=== PATIENT | male | born 1960 | race Two or more races ===

== ENCOUNTER 2024-04-04 09:50 | Inpatient (IN) | payer MEDICAID, OTHER ==
[~2024-04-04] VITALS: Ht 165.1 cm; Wt 65.3 kg
[2024-04-04] VITALS (9 sets, daily range): BP systolic 130–146; BP diastolic 67–72; PULSE 80–97; RESP 11–18; TEMP 98–98.7; O2SAT 100
[2024-04-04 10:28] LABS: Eosinophils # (auto) 0.1 10 ^3/uL (0-0.8); Eosinophils % (auto) 1.7 % (0.0-7.0); Lymphocytes # (auto) 1.2 10 ^3/uL (0.4-5.4); Mean Corpuscular Hemoglobin 20.6 pg (28.0-32.0); Platelet Count (auto) 209 10^3/uL (140-450)
[2024-04-04 10:31] LABS: Basophils # (auto) 0.1 10 ^3/uL (0-0.2); Basophils % (auto) 1.1 % (0.0-2.0); Hematocrit 18.4 % (41.0-53.0); Lymphocytes % (auto) 22.5 % (10.0-50.0); Mean Corpuscular Hgb Conc. 30.7 g/dL (32.0-36.0); Mean Corpuscular Volume 67.1 fL (80.0-100.0); Monocytes # (auto) 0.4 10 ^3/uL (0-1.3); Monocytes % (auto) 8.6 % (0.0-12.0); Neutrophils # (auto) 3.4 10 ^3/uL (1.6-8.6); Neutrophils % (auto) 66.1 % (37.0-80.0); Nucleated Red Blood Cells % 0.7 %; Red Blood Cells 2.75 10^6/uL (4.5-5.90); White Blood Cell 5.2 10^3/uL (4.4-10.8)
[2024-04-04 10:36] LABS: Chloride 96 mmol/L (98-107); Potassium 4.2 mmol/L (3.5-5.1); Sodium 129 mmol/L (136-145)
[2024-04-04 10:37] LABS: Anion Gap 9 (5-15); Calcium 9.5 mg/dL (8.7-10.4); Carbon Dioxide 24 mmol/L (20-31)
[2024-04-04 10:40] LABS: Red Cell Distribution Width 20.8 % (11.8-14.3)
[2024-04-04 10:42] LABS: BUN/Creatinine Ratio 5.4 (10.0-20.0); Blood Urea Nitrogen 5 mg/dL (9-23)
[2024-04-04 10:45] LABS: Hemoglobin 5.7 g/dL (13.5-17.5)
[2024-04-04 10:46] LABS: Glucose 491 mg/dL (74-106)
[2024-04-04] MEDS: LABETALOL HCL 20 MG/4 ML VL IV ONE (10:52)
[2024-04-04] MEDS: InsuLIN REG 1unit/0.01ml Soln (100units/ml) IV ONE (11:25)
[2024-04-04 11:30] LABS: Anisocytosis Slight; Hypochromia Moderate; Platelet Estimate Adequate
[2024-04-04 11:31] LABS: Ovalocytes FEW
[2024-04-04] MEDS ORDERED: MORPHINE SULFATE INJ 2 MG/ml SYRG IV PRN ×2 (18:30)
[2024-04-04] MEDS: MULTIPLE VITAMIN TAB PO ONE (18:30)
[2024-04-04] MEDS ORDERED: DEXTROSE (50%) 50ML SYRG IV PRN (18:30)
[2024-04-04] MEDS ORDERED: LORazepam 2MG/ML-1ML VIAL IV PRN (18:30)
[2024-04-04] MEDS ORDERED: ACETAMINOPHEN 325 MG TAB PO PRN (18:30)
[2024-04-04] MEDS ORDERED: ONDANSETRON HCL 4 MG/2 ML VIAL IV PRN (18:30)
[2024-04-04] MEDS ORDERED: NITROGLYCERIN 0.4 MG SL TAB SL PRN (18:30)
[2024-04-04] MEDS ORDERED: hydrALAZINE HCL 20 MG/ML VL IV PRN (19:00)
[2024-04-04] MEDS: chlordiazePOXIDE HCL 25 MG CAP PO SCH (20:24)
[2024-04-04] MEDS: FOLIC ACID 1 MG TAB PO ONE (20:24)
[2024-04-04] MEDS: LISINOPRIL 5 MG TAB PO ONE (20:25)
[2024-04-04] MEDS: HYDROcodone-ACET 5/325MG TAB PO PRN (20:25)
[2024-04-04] MEDS: PANTOPRAZOLE 40 MG/10 ML VIAL INJ IV ONE (20:40)
[2024-04-04] MEDS: MAGNESIUM SULFATE 1GM/100ML 100 ML IV SCH (20:40)
[2024-04-04] MEDS: PANTOPRAZOLE 40mg/50ML NS AE 50 ML IV SCH (20:41)
[2024-04-04] MEDS: THIAMINE HCL 100 MG TAB PO ONE (20:41)
[2024-04-04] MEDS: InsuLIN REG 1unit/0.01ml Soln (100units/ml) SC SCH (21:43)
[2024-04-04] MEDS: INSULIN LANTUS (GLARGINE) 1 /0.01ml (100units/ml) SC SCH (21:44)
[2024-04-04] MEDS: OCTREOTIDE ACETATE 100 MCG/ML VL ONE ×2 (21:45→22:49)
[2024-04-04] MEDS: OCTREOTIDE ACETATE 100 MCG in SODIUM CHL 0.9% 50 ML IV ONE (22:00)
[2024-04-04] MEDS: SODIUM CHLOR 0.9% PF (SALINE LOCK) 10ML VIAL/SYR IV SCH (22:29)
[2024-04-04] MEDS: ACCU-CHEK COMFORT CURVE STRIP VI SCH (22:29)
[2024-04-04] MEDS: OCTREOTIDE ACETATE 500 MCG in SODIUM CHL 0.9% 99 ML IV SCH (23:25)
[2024-04-05 05:16] LABS: Eosinophils # (auto) 0.1 10 ^3/uL (0-0.8); Lymphocytes # (auto) 1.2 10 ^3/uL (0.4-5.4); Mean Corpuscular Hemoglobin 24.4 pg (28.0-32.0); Monocytes # (auto) 0.6 10 ^3/uL (0-1.3); Neutrophils # (auto) 2.8 10 ^3/uL (1.6-8.6); White Blood Cell 4.8 10^3/uL (4.4-10.8)
[2024-04-05 05:19] LABS: Basophils # (auto) 0 10 ^3/uL (0-0.2); Basophils % (auto) 0.8 % (0.0-2.0); Eosinophils % (auto) 2.6 % (0.0-7.0); Hemoglobin 9.2 g/dL (13.5-17.5); Lymphocytes % (auto) 24.6 % (10.0-50.0); Mean Corpuscular Hgb Conc. 33.1 g/dL (32.0-36.0); Mean Corpuscular Volume 73.9 fL (80.0-100.0); Nucleated Red Blood Cells % 0.8 %; Platelet Count (auto) 173 10^3/uL (140-450); Red Blood Cells 3.78 10^6/uL (4.5-5.90)
[2024-04-05 05:32] LABS: Alanine Aminotransferase 25 U/L (7-40); Albumin 3.9 g/dL (3.2-4.8); Alkaline Phosphatase 116 U/L (46-116); Anion Gap 5 (5-15); Aspartate Aminotransferase 14 U/L (13-40); BUN/Creatinine Ratio 8.3 (10.0-20.0); Bilirubin, Total 1.8 mg/dL (0.2-1.0); Blood Urea Nitrogen 6 mg/dL (9-23); Calcium 8.9 mg/dL (8.7-10.4); Carbon Dioxide 26 mmol/L (20-31); Chloride 103 mmol/L (98-107); Magnesium 2.4 mg/dL (1.6-2.6); Potassium 4.1 mmol/L (3.5-5.1); Total Protein 6.6 g/dL (5.7-8.2)
[2024-04-05] MEDS: OCTREOTIDE ACETATE 100 MCG/ML VL ONE (05:32)
[2024-04-05 05:35] LABS: Glucose 204 mg/dL (74-106); Sodium 134 mmol/L (136-145)
[2024-04-05] MEDS: OCTREOTIDE ACETATE 500 MCG/ML VL ONE (05:41)
[2024-04-05 05:45] LABS: Triglycerides 83 mg/dL (< 150)
[2024-04-05 05:46] LABS: LDL Cholesterol 61 mg/dL (< 100)
[2024-04-05 05:47] LABS: Cholesterol 121 mg/dL (< 200); HDL Cholesterol 50 mg/dL (40-59)
[2024-04-05] MEDS: InsuLIN REG 1unit/0.01ml Soln (100units/ml) SC SCH (06:18)
[2024-04-05 07:25] LABS: Anisocytosis Moderate; Hypochromia Slight
[2024-04-05 07:26] LABS: Ovalocytes FEW; Platelet Estimate Adequate
[2024-04-05] MEDS: MULTIPLE VITAMIN TAB PO SCH (10:07)
[2024-04-05] MEDS: FOLIC ACID 1 MG TAB PO SCH (10:07)
[2024-04-05] MEDS: THIAMINE HCL 100 MG TAB PO SCH (10:08)
[2024-04-05] MEDS: chlordiazePOXIDE HCL 25 MG CAP PO SCH (10:08)
[2024-04-05] MEDS: LISINOPRIL 5 MG TAB PO SCH (10:09)
[2024-04-05 19:20] VITALS: PULSE 75; RESP 15; O2SAT 99
[2024-04-06 00:07] LABS: Urine Bacteria None Seen /hpf (None Seen)
[2024-04-06 00:27] LABS: Urine Blood Negative /uL (Negative); Urine Clarity Clear (Clear); Urine Color Yellow (Yellow); Urine Protein, UAD Negative (Negative); Urine Specific Gravity 1.012 (1.001-1.035); Urine Urobilinogen Normal (Negative); Urine WBC 2 /hpf (0 - 3); Urine pH 5.5 (5.0-9.0)
[2024-04-06 00:31] LABS: Amphetamine Screen, Urine Neg (NEGATIVE); Barbiturate Scree,Urine Neg (NEGATIVE); Benzodiazephine Screen, Urine Pos (NEGATIVE); Cannabinoid Screen, Urine Neg (NEGATIVE); Cocaine Screen, Urine Neg (NEGATIVE); Opiate Scree,Urine Neg (NEGATIVE); Phencyclidine Screen, Urine Neg (NEGATIVE)
[2024-04-06 06:57] LABS: Chloride 107 mmol/L (98-107); Potassium 4.4 mmol/L (3.5-5.1); Sodium 136 mmol/L (136-145)
[2024-04-06 06:58] LABS: Anion Gap 7 (5-15); Calcium 8.9 mg/dL (8.7-10.4); Carbon Dioxide 22 mmol/L (20-31)
[2024-04-06 07:03] LABS: BUN/Creatinine Ratio 6.7 (10.0-20.0); Blood Urea Nitrogen 5 mg/dL (9-23); Glucose 268 mg/dL (74-106)
[2024-04-06 07:19] LABS: Basophils # (auto) 0 10 ^3/uL (0-0.2); Eosinophils # (auto) 0.1 10 ^3/uL (0-0.8); Lymphocytes # (auto) 1.1 10 ^3/uL (0.4-5.4); Monocytes # (auto) 0.6 10 ^3/uL (0-1.3); Neutrophils # (auto) 3.5 10 ^3/uL (1.6-8.6); White Blood Cell 5.3 10^3/uL (4.4-10.8)
[2024-04-06 07:25] LABS: Basophils % (auto) 0.6 % (0.0-2.0); Hematocrit 29.4 % (41.0-53.0); Hemoglobin 9.5 g/dL (13.5-17.5); Lymphocytes % (auto) 21.2 % (10.0-50.0); Mean Corpuscular Hemoglobin 25.1 pg (28.0-32.0); Mean Corpuscular Hgb Conc. 32.2 g/dL (32.0-36.0); Mean Corpuscular Volume 78.1 fL (80.0-100.0); Monocytes % (auto) 10.7 % (0.0-12.0); Neutrophils % (auto) 65.5 % (37.0-80.0); Nucleated Red Blood Cells % 0.6 %; Platelet Count (auto) 163 10^3/uL (140-450); Red Blood Cells 3.76 10^6/uL (4.5-5.90); Red Cell Distribution Width 24.9 % (11.8-14.3)
[2024-04-06 08:00] VITALS: PULSE 80; RESP 16; O2SAT 98
[2024-04-06 09:18] LABS: Anisocytosis Moderate; Hypochromia Slight; Ovalocytes FEW; Platelet Estimate Adequate; Tear Drop Cells FEW
[2024-04-06] MEDS: chlordiazePOXIDE HCL 25 MG CAP PO SCH (10:20)
[2024-04-06 22:06] VITALS: BP 137/73; PULSE 75; RESP 16; RESP 18; TEMP 98.3; O2SAT 96; O2SAT 98
[2024-04-06 22:30] VITALS: BP 137/73; PULSE 75; RESP 16; TEMP 98.3; O2SAT 98
[2024-04-07] VITALS (9 sets, daily range): BP systolic 107–152; BP diastolic 72–80; PULSE 72–99; RESP 15–20; TEMP 97.7–98.5; O2SAT 94–100
[2024-04-07] MEDS: chlordiazePOXIDE HCL 25 MG CAP PO SCH (06:28)
[2024-04-07 09:26] LABS: Basophils # (auto) 0 10 ^3/uL (0-0.2); Eosinophils # (auto) 0.1 10 ^3/uL (0-0.8); Hemoglobin 9.7 g/dL (13.5-17.5); Monocytes # (auto) 0.4 10 ^3/uL (0-1.3); Neutrophils # (auto) 3.2 10 ^3/uL (1.6-8.6); Nucleated Red Blood Cells % 0.1 %; White Blood Cell 4.8 10^3/uL (4.4-10.8)
[2024-04-07 09:28] LABS: Basophils % (auto) 0.6 % (0.0-2.0); Eosinophils % (auto) 2.2 % (0.0-7.0); Hematocrit 30.8 % (41.0-53.0); Lymphocytes % (auto) 21.2 % (10.0-50.0); Mean Corpuscular Hemoglobin 24.2 pg (28.0-32.0); Mean Corpuscular Hgb Conc. 31.6 g/dL (32.0-36.0); Mean Corpuscular Volume 76.7 fL (80.0-100.0); Platelet Count (auto) 175 10^3/uL (140-450); Red Blood Cells 4.02 10^6/uL (4.5-5.90)
[2024-04-07 09:36] LABS: Chloride 111 mmol/L (98-107); Potassium 3.8 mmol/L (3.5-5.1); Sodium 140 mmol/L (136-145)
[2024-04-07 09:37] LABS: Anion Gap 8 (5-15); Calcium 8.7 mg/dL (8.7-10.4); Carbon Dioxide 21 mmol/L (20-31)
[2024-04-07 09:40] LABS: Red Cell Distribution Width 25.5 % (11.8-14.3)
[2024-04-07 09:48] LABS: BUN/Creatinine Ratio 6.9 (10.0-20.0); Blood Urea Nitrogen < 5 mg/dL (9-23); Glucose 136 mg/dL (74-106)
[2024-04-07 11:08] LABS: Ovalocytes FEW
[2024-04-07 11:09] LABS: Anisocytosis Moderate; Hypochromia Slight; Platelet Estimate Adequate; Tear Drop Cells FEW
[2024-04-08] VITALS (10 sets, daily range): BP systolic 139–181; BP diastolic 68–90; PULSE 78–103; RESP 13–20; TEMP 97.6–99.4; O2SAT 96–100
[2024-04-08] MEDS: OCTREOTIDE ACETATE 100 MCG/ML VL ONE (04:22)
[2024-04-08] MEDS ORDERED: SODIUM CHLORIDE LOCK 10 ML ONE (08:22)
[2024-04-08] MEDS: fentaNYL CITRATE 100 MCG/2 ML VL ONE (13:13)
[2024-04-08] MEDS: MIDAZOLAM HCL 5 MG/ML-1ML VIAL ONE (13:13)
[2024-04-08] MEDS: diphenhdrAMINE HCL 50 MG/1 ML VL ONE (13:13)
[2024-04-08] MEDS: LIDOCAINE VISCOUS 2% 15ML UD ONE (13:13)
[2024-04-08] MEDS ORDERED: SUCR1SUS26 PO (13:44)
[2024-04-08] MEDS ORDERED: PANT40TA2 PO (13:44)
[2024-04-08] MEDS ORDERED: OCTREOTIDE ACETATE 500 MCG in D5W 5% 99 ML IV SCH (13:45)
[2024-04-08] MEDS: SUCRALFATE 1 GM/10 ML ORAL SUSP PO SCH (17:45)
[2024-04-08] MEDS: PANTOPRAZOLE 40 MG TAB PO SCH (17:45)
[2024-04-09 01:00] VITALS: BP 168/85; PULSE 112; RESP 16; TEMP 97.8; O2SAT 94
[2024-04-09 05:00] VITALS: BP 136/79; PULSE 96; RESP 16; TEMP 98.1; O2SAT 95
[2024-04-09 08:00] VITALS: PULSE 84
[2024-04-09 09:30] VITALS: BP 157/83; PULSE 86; RESP 20; TEMP 98.3; O2SAT 99
[2024-04-09 11:16] VITALS: BP 157/83; PULSE 86; RESP 20; TEMP 98.3; O2SAT 99
[2024-04-09 12:18] VITALS: BP 151/80; PULSE 100; RESP 18; TEMP 98.3; O2SAT 99
== END 2024-04-09 15:00 | disposition home health service (06) | DRG 242 ==
LOC: ER 09:50 → UNDOADMIN 18:22 → TELE 18:22 → TELE-CENTR 04-06 21:30
PROVIDERS: ADMIT Nurse Practitioner Family; ATTEND Internal Medicine
PROC: 30233N1 Transfusion of Nonautologous Red Blood Cells into Peripheral Vein, Percutaneous Approach (ICD-10-PCS; principal; 2024-04-04)
PROC: 0DB98ZX Excision of Duodenum, Via Natural or Artificial Opening Endoscopic, Diagnostic (ICD-10-PCS; 2024-04-08)
PROC: 0DB68ZX Excision of Stomach, Via Natural or Artificial Opening Endoscopic, Diagnostic (ICD-10-PCS; 2024-04-08)
DX: I85.01 Esophageal varices with bleeding (principal); E87.1 Hypo-osmolality and hyponatremia; K29.91 Gastroduodenitis, unspecified, with bleeding; D62 Acute posthemorrhagic anemia; F10.20 Alcohol dependence, uncomplicated; F17.200 Nicotine dependence, unspecified, uncomplicated; F19.90 Other psychoactive substance use, unspecified, uncomplicated; I16.1 Hypertensive emergency; K52.9 Noninfective gastroenteritis and colitis, unspecified; K29.00 Acute gastritis without bleeding; Y90.9 Presence of alcohol in blood, level not specified; K44.9 Diaphragmatic hernia without obstruction or gangrene; Z79.4 Long term (current) use of insulin; E11.65 Type 2 diabetes mellitus with hyperglycemia; I10 Essential (primary) hypertension; K22.10 Ulcer of esophagus without bleeding; K29.70 Gastritis, unspecified, without bleeding
CPT/HCPCS: 36415; 43239; 71045; 74176; 80048; 80053; 80061; 80307; 81001; 82962; 83036; 83735; 85025; 86850; 86900; 86901; 86920; 93005; 99291; G0378; J1815; J2250; J2470; J7060